=== PATIENT | female | born 1970 | race Hispanic/Latino ===

== ENCOUNTER 2017-02-10 16:20 | Observation (INO) | payer BC ==
[2017-02-10] MEDS ORDERED: Iopamidol 370 76% 50 ML VIAL FS ONE (16:34)
[2017-02-10 17:04] LABS: #Lymphocytes 1.7 thou/uL (1.20-3.40); #Monocytes 0.6 thou/uL (0.11-0.59); #Neutrophils 9.9 thou/uL (1.40-6.50); %Basophils 0.3 % (0.0-1.0); %Eosinophils 0.2 % (0.0-10.0); %Lymphocytes 13.8 % (21.0-51.0); Hematocrit 42.4 % (36.0-47.0); Mean Platelet Volume 9.8 fL (7.4-10.4); Red Blood Cell (RBC) Count 5.11 mill/uL (4.20-5.40); White Blood Cell (WBC) Count 12.3 thou/uL (4.8-10.8)
[2017-02-10 17:27] LABS: ALT (SGPT) 9 U/L (8-55); AST (SGOT) 13 U/L (5-34); Alkaline Phosphatase 128 U/L (40-150); Anion Gap 18 mmol/L (10-20); BUN (Urea Nitrogen) 31 mg/dL (7.0-18.7); Bilirubin, Total 0.6 mg/dL (0.2-1.2); CK (CPK) 65 U/L (29-168); Calc. Creatinine Clearance 0 mL/min (70-130); Calcium 8.9 mg/dL (7.8-10.44); Carbon Dioxide 23 mmol/L (22-29); Chloride 94 mmol/L (98-107); Estimated GFR-MDRD 46; Globulin 3.7 g/dL (2.4-3.5)
[2017-02-10 17:29] LABS: Troponin I Less than 0.010 ng/mL (< 0.028)
--- NOTE | 2017-02-10 17:50 | RAD ---
PORTABLE CHEST ONE VIEW: 02/10/17 at 5:15 p.m. HISTORY: Diabetes mellitus, elevated blood sugar, hyperglycemia and blood sugar in the 400s. Comparison made to exam of 10/26/15. FINDINGS: The heart size is normal. The lungs are expanded without focal areas of consolidation, pneumothorax, claudia pulmonary or pleural effusions. IMPRESSION: No acute process. POS: [facility]
[2017-02-10 17:58] LABS: Lactic Acid - Sepsis 1.6 mmol/L (0.5-2.2)
[2017-02-10 18:14] LABS: Bilirubin Negative (Negative); Blood, Urine Negative (Negative); Glucose, Urine (Dipstick) >=1000 mg/dL (Negative); Ketone, Urine 40 mg/dL (Negative); Nitrite Negative (Negative); Protein, Urine (Dipstick) 100 mg/dL (Neg-Trace); Urobilinogen 0.2 mg/dL (0.2-1.0)
[2017-02-10 18:16] LABS: Bacteria/HPF None Seen HPF (None Seen); Hyaline Casts/LPF 0-3 HYALINE CAST LPF (0-3 Hyaline); RBC/HPF 0-3 HPF (0-3); WBC/HPF None Seen HPF (0-3)
[2017-02-10] MEDS ORDERED: Acetaminophen 500 MG TAB ONE (20:01)
[2017-02-10] MEDS ORDERED: Ondansetron HCl/PF 4 MG/2 ML Vial ONE ×2 (20:10→21:15)
[2017-02-10] MEDS ORDERED: Insulin Regular 300 UNITS/3 ML VIAL ONE (20:33)
--- NOTE | 2017-02-10 21:46 | CT ---
CT ABDOMEN AND PELVIS WITHOUT CONTRAST: History: 46-year-old female with abdominal pain, hypoglycemia, nausea, vomiting. FINDINGS: Lack of IV contrast reduces the sensitivity of the exam particularly for evaluation of solid organs. Oral contrast was administered. The lung bases are clear. No gallstones are present. No free air or free fluid is noted in the abdom en or pelvis. There are a few punctate calculi in the kidneys. No calculi is seen in the ureters or urinary bladder. No hydroureteronephrosis is noted on either side. Uterus and ovaries are present. T he bowel loops are not abnormality dilated. A normal appearing appendix is present. There are vascular calcifications without evidence of aneurysmal dilatation of the abdominal aorta. Mild degenerative changes are seen in the spine. A small fat containing hernia is present. IMPRESSION: 1. Tiny bilateral nonobstructing renal calculi. 2. No evidence of appendicitis. POS: MARGARITA
--- NOTE | 2017-02-10 21:52 | CT ---
CT HEAD NONCONTRAST: Clinical history: Headache. FINDINGS: Cavum pellucidum at vergae noted. The ventricular system is appropriate in size. There is no intracr anial hemorrhage or mass effect or midline shift. Scattered paranasal sinus opacification present. C orrelate clinically. IMPRESSION: No acute intracranial hemorrhage or mass effect. POS: ANGELA
[2017-02-10 23:12] LABS: Anion Gap 12 mmol/L (-14-95); Critical Call POC Critical Value; T. Carbon Dioxide 26.4 mmol/L (1.0-85.0); pH (Venous) 7.471 (7.35-7.45); vO2 Saturation-calc 96.9 % (0.0-100.0)
[2017-02-10] MEDS ORDERED: Promethazine HCl 25 MG/ML VIAL ONE (23:13)
[2017-02-10] MEDS ORDERED: Potassium Chloride 20 MEQ TAB ONE (23:13)
[2017-02-10] MEDS ORDERED: NS 0.9% w/ 20 MEQ KCL 1,000 ML IV SCH (23:59)
[2017-02-11] MEDS ORDERED: Ondansetron HCl/PF 4 MG/2 ML Vial IVP PRN (00:52)
[2017-02-11] MEDS ORDERED: Acetaminophen 325 MG TAB PO PRN (00:52)
[2017-02-11] MEDS ORDERED: HYDROcodone/Acetaminophen 5/325 mg Tablet PO PRN (00:52)
[2017-02-11] MEDS ORDERED: HYDROcodone/Acetaminophen 10/325 mg Tablet PO PRN (00:52)
[2017-02-11] MEDS ORDERED: HumaLOG 300 UNITS/3 ML VIAL SC PRN (00:52)
[2017-02-11] MEDS ORDERED: Dextrose 5% in Water 1,000 ML IV PRN (00:52)
[2017-02-11] MEDS ORDERED: Dextrose 50% Abboject 50 ML SYRINGE SLOW IVP PRN (00:52)
[2017-02-11] MEDS ORDERED: NS 0.9% w/ 40 MEQ KCL 1,000 ML IV SCH (01:00)
[2017-02-11 01:04] VITALS: BMI 29.5
--- NOTE | 2017-02-11 02:58 | HP ---
DATE OF ADMISSION: 02/10/2017 CHIEF COMPLAINT: Increased glucose. HISTORY OF PRESENT ILLNESS: Ms. Roca is a 46-year-old Icelandic-speaking only female who presents to the emergency department tonight for increased glucose. She was seen in [facility] [place] for the same reason and was sent home and told to start her medicines. Per her daughter, she did start her Levemir and took her normal dose of 20 units today around 1:00 p.m. She has not eaten mu ch in the last 2 to 3 days. She has not eaten much on Friday, Friday, or Friday. Today, she is h aving some abdominal pain, headache, and diffuse body aches. She has had some off and on sharp ches t pains, worse with deep breathing, but no shortness of breath or cough. In the emergency department, she was seen, was noted to have increased glucose and a beta hydroxybut yrate that was positive at 1.78. They assumed that she had DKA and gave her 10 units of IV regular insulin. Her initial potassium on presentation was 3.4. At that time, her anion gap was normal, she had a bicarb of 23 and a lactic acid that was normal at 1.6. We were called for admission for DKA, however, with her normal gap, I was not convinced. ABG was requested, VBG was done that showed a normal pH of 7.47. However, due to the IV insulin, I drove her potassium down to 2.8, so I am placed her on observation for low potassium. She has no other current complaints. No other acute events. PAST MEDICAL HISTORY: 1. Diabetes mellitus, type 2, long-term use of insulin without known complications and hypoglycemia . 2. Hypertension. 3. Hyperlipidemia. 4. History of cerebrovascular disease with a past TIAs. PAST SURGICAL HISTORY: Include appendectomy in 2016, bilateral tubal ligation, remotely. HOME MEDICATIONS: 1. Lisinopril/hydrochlorothiazide 20/12.5 one p.o. b.i.d. 2. Coreg 12.5 mg p.o. b.i.d. 3. Levemir 20 units subcu every evening. 4. Plavix 75 mg daily. 5. Gemfibrozil 600 mg daily. 6. Aspirin 81 mg daily. Daughter states that she thinks when asked about oral anti-hypoglycemic agents that glipizide might be in her medicine cabinet, might be an old medicine. When asked which medicine she takes, the meli hter stated they are not sure which one she is actively taking. ALLERGIES: NKDA. FAMILY HISTORY: Significant for diabetes and hyperlipidemia. No history of clotting or bleeding di sorder, no immune dysfunction. SOCIAL HISTORY: Negative for habits x3. She is and lives at home with 3 children still lef t there out of the total of 7 that she has. REVIEW OF SYSTEMS: A 10-point review of systems was performed with the daughter translating, it was negative for all other systems except stated as per HPI. PHYSICAL EXAMINATION: VITAL SIGNS: Temperature 98.0, pulse 58, blood pressure 134/75, respiratory rate 14, satting 100% o n room air. GENERAL: She is awake. She is alert. She is oriented x3. She is acutely ill-looking [place] female, appears to be in no acute distress. HEENT: Normocephalic, atraumatic. Pupils are equal, round, and reactive bilaterally. Mucous membr anes moist, had no visible lesions. No thrush. NECK: Supple without lymphadenopathy, JVD, or thyromegaly. Normal carotid upstrokes. LUNGS: Clear. No wheezes, no rales, no rhonchi, no prolonged expiratory phase. CARDIOVASCULAR: Normal S1 and S2, no S3 or S4. No murmurs. ABDOMEN: Soft, it is nontender, nondistended, no masses, no organomegaly. She has no rebound, rigi dity, or guarding. She has normoactive bowel sounds present in all 4 quadrants. EXTREMITIES: Show no cyanosis, no clubbing, no edema, 2+ peripheral pulses in her dorsalis pedis an d posterior tibials. MUSCULOSKELETAL: Shows normal range of motion, normal inspection. There is no inflammation. No pa lpable joint effusions. SKIN: Warm, moist, and well perfused without rashes or lesions. NEUROLOGIC EXAM: Her cranial nerves II through XII are grossly intact. She has no focal deficits a nd 5/5 strength in all 4 extremities. LABORATORY DATA: Initial CMP: Sodium 132, likely pseudohyponatremia, potassium is 3.4, chloride 94 , bicarbonate 23, BUN 31, creatinine 1.26, up from her normal baseline of 0.9 to 1.0. Glucose was 4 29 and normal liver functions. A repeat showed glucose down to 189 and potassium down to 2.8. CBC showed a white count of 12.3 with a slight increase in granulocytes, but no bands. Hemoglobin is 13 .8, hematocrit of 42.4, and platelets were 302,000. RADIOGRAPHIC STUDIES: Showed a brain CT that was negative for acute intracranial bleeding or abnorm ality. Chest x-ray showed no acute cardiopulmonary disease. ASSESSMENT AND PLAN: 1. Hypokalemia: Secondary to insulin administration. We will place her on normal saline plus 20 o f KCl at 200 mL per hour tonight. We will start her on 40 mEq of potassium every 4 hours for three doses. We will recheck her magnesium, basic metabolic profile, and phosphorus first thing in the mo rning and replace electrolytes. She is not in active DKA. Her pH is 7.48, almost. Her bicarbonate is normal. She has a closed anion gap. Her beta hydroxybutyrate elevation is likely secondary to three days with the fasting and some metabolism due to not using her insulin. We will continue to w atch her labs very closely. 2. Hypertension, on lisinopril/hydrochlorothiazide, Coreg, and we will continue these. 3. No history of transient ischemic attack, on Plavix, we will continue. 4. Hyperlipidemia, gemfibrozil will continue. 5. Diabetes mellitus, type 2, uncontrolled, with history of long-term insulin. She is on Levemir 2 0 daily, which we will continue and we will add in a sliding scale of moderate dose. We will place her on observation and expect to be able to go home tomorrow. We will use Lovenox for deep venous thrombosis prophylaxis and Pepcid for gastrointestinal prophylaxis.
[2017-02-11 04:07] VITALS: TEMP 97.5
[2017-02-11 05:48] LABS: #Eosinphils 0.1 thou/uL (0.0-0.7); #Lymphocytes 2.8 thou/uL (1.20-3.40); #Monocytes 0.5 thou/uL (0.11-0.59); #Neutrophils 6.5 thou/uL (1.40-6.50); %Basophils 0.3 % (0.0-1.0); %Eosinophils 0.5 % (0.0-10.0); %Lymphocytes 28.2 % (21.0-51.0); %Monocytes 5.1 % (0.0-10.0); Hematocrit 35.9 % (36.0-47.0); Mean Platelet Volume 9.4 fL (7.4-10.4); Red Blood Cell (RBC) Count 4.26 mill/uL (4.20-5.40); White Blood Cell (WBC) Count 9.8 thou/uL (4.8-10.8)
[2017-02-11 06:07] LABS: Anion Gap 11 mmol/L (10-20); BUN (Urea Nitrogen) 25 mg/dL (7.0-18.7); Calc. Creatinine Clearance 86 mL/min (70-130); Calcium 7.9 mg/dL (7.8-10.44); Carbon Dioxide 25 mmol/L (22-29); Chloride 105 mmol/L (98-107); Estimated GFR-MDRD 64; Phosphorus 2.7 mg/dL (2.3-4.7)
[2017-02-11 08:29] VITALS: BP 125/72
[2017-02-11] MEDS ORDERED: Enoxaparin Sodium 40 MG/0.4 ML SYRINGE SC SCH (09:00)
[2017-02-11] MEDS ORDERED: FLU VACC QS2017-18 36 mo. & older 0.5 ML SYRINGE IM ONE (09:00)
[2017-02-11] MEDS ORDERED: Famotidine/PF 20 mg/2ml Vial SLOW IVP SCH (09:00)
--- NOTE | 2017-02-11 09:47 | PDOC.PN ---
- Subjective Encounter Start Date: 02/11/17 Encounter Start Time: 09:45 Ms. Roca is feeling a bit swollen, but otherwise ok. - Objective Resuscitation Status: Resuscitation Status FULL:Full Resuscitation MAR Reviewed: Yes Vital Signs & Weight: Vital Signs (12 hours) Temp Pulse Resp BP BP Pulse Ox 02/11/17 07:40 97.5 F L 54 L 16 125/72 97 02/11/17 04:00 97.5 F L 58 L 14 118/65 98 02/11/17 00:30 98.0 F 60 14 167/87 H 96 Weight Weight 161 lb 8 oz I&O: 02/10/17 02/11/17 02/12/17 06:59 06:59 06:59 Intake Total 301 Balance 301 Result Diagrams: 02/11/17 05:36 02/11/17 05:36 Additional Labs: Accuchecks 02/11/17 02/11/17 02/10/17 05:37 00:39 23:59 POC Glucose 153 H 182 H 165 H Phys Exam - Physical Examination HEENT: PERRLA Respiratory: no wheezing, no rales, no rhonchi, clear to auscultation bilateral Cardiovascular: RRR, no significant murmur, no rub Gastrointestinal: soft, non-tender, positive bowel sounds Musculoskeletal: edema present + mild non-pitting edema Dx/Plan (1) DM type 2 (diabetes mellitus, type 2) Status: Chronic (2) Dyslipidemia Code(s): E78.5 - HYPERLIPIDEMIA, UNSPECIFIED Status: Chronic (3) HTN (hypertension) Code(s): I10 - ESSENTIAL (PRIMARY) HYPERTENSION Status: Chronic - Plan * DM- uncontrolled- her glucose levels are better this morning * HTN- blood pressure is stable. * Stable for discharge home
--- NOTE | 2017-02-11 10:02 | DIS ---
DATE OF ADMISSION: 02/10/2017 DATE OF DISCHARGE: 02/11/2017 PRIMARY CARE PHYSICIAN: Erick Dai M.D. DISCHARGE DISPOSITION: Home. PRIMARY DISCHARGE DIAGNOSES: 1. Diabetes mellitus type 2, uncontrolled. 2. Hypertension. 3. Hyperlipidemia. 4. Cerebral vascular disease. CODE STATUS: FULL CODE. ALLERGIES: No known drug allergies. PROCEDURES DONE DURING ADMISSION: The patient had a CT scan of the brain with results showing no ac eulalio intracranial hemorrhage or mass effect. The CT scan of abdomen and pelvis showing tiny bilatera l nonobstructing renal stones and no evidence of appendicitis. HOSPITAL COURSE: Ms. Roca is a pleasant 46-year-old female that presented to the emergency room complaining of elevated blood glucose. She was also having some abdominal pain and headaches and d iffuse body aches. She was initially thought to be in DKA. However, on further analysis, it appear s as if she has slowly had hyperglycemia with no evidence of any acidosis. Her renal function was s lightly elevated. She was placed in observation and her blood sugars were controlled. She was give n IV fluids and started back on insulin. Her blood sugars at discharge were 170 and 153. The patie nt will be discharged home on her previous medications as it appears that she had not been taking so me of her medications prior to admission. She will be discharged on the Lantus or Levemir to 20 uni ts as she had previously been taken and to continue metformin; however, we will be discontinuing gli pizide as it is probably not adding much to her glycemic control, but will likely place her at some increased risk of hypoglycemia. She has been instructed to follow up with her primary care physicia n in approximately one week.
[2017-02-11] MEDS ORDERED: Insulin Detemir 100 UNITS/ML 20 UNITS in Pre-Filled Syringe 1 EACH SC SCH (21:00)
== END 2017-02-11 13:06 | disposition home or self-care (01) ==
LOC: ERS 16:20 → 2SW 23:58
PROVIDERS: ADMIT Internal Medicine Infectious Disease; ATTEND Internal Medicine Infectious Disease
DX: E11.65 Type 2 diabetes mellitus with hyperglycemia (principal); I10 Essential (primary) hypertension; E78.5 Hyperlipidemia, unspecified; I63.9 Cerebral infarction, unspecified; Z79.4 Long term (current) use of insulin; Z79.82 Long term (current) use of aspirin; Z79.899 Other long term (current) drug therapy; Z86.73 Personal history of transient ischemic attack (TIA), and cerebral infarction without residual deficits
CPT/HCPCS: 36415; 36416; 51701; 70450; 71010; 74176; 80048; 80053; 81003; 81015; 81025; 82010; 82330; 82550; 82553; 82803; 83605; 83690; 83735; 84100; 84484; 85025; 87040; 93005; 94760; 96361; 96365; 96366; 96372; 96374; 96375; 96376; A4353; G0378; J1650; J1815; J2270; J2405; J2550; S0028

== ENCOUNTER 2019-12-23 09:45 | Outpatient (CLI) | payer BC ==
--- NOTE | 2019-12-23 10:43 | MMO ---
Bilateral MAMMO Bilat Screen [facility]. CLINICAL HISTORY: Patient is 49 years old and is seen for screening. The patient has no family history of breast cancer. The patient has no personal history of cancer. VIEWS: The views performed were: bilateral craniocaudal with tomosynthesis and bilateral mediolateral oblique with tomosynthesis. FILMS COMPARED: The present examination has been compared to a prior imaging study performed at [facility] on 08/13/2017. This study has been interpreted with the assistance of computer-aided detection. MAMMOGRAM FINDINGS: The breasts are heterogeneously dense, which could obscure a lesion on mammography. Finding 1: There are stable benign appearing calcifications seen in both breasts. Finding 2: There is a focal asymmetry measuring 7 millimeters seen in the upper-outer region of the left breast. IMPRESSION: FINDING 1: STABLE CALCIFICATIONS IN BOTH BREASTS ARE BENIGN. FINDING 2: FOCAL ASYMMETRY IN THE LEFT BREAST REQUIRES ADDITIONAL EVALUATION. ADDITIONAL PROJECTIONS (LEFT CRANIOCAUDAL SPOT COMPRESSION; LEFT MEDIOLATERAL OBLIQUE SPOT COMPRESSION; AND LEFT MEDIOLATERAL) ARE RECOMMENDED. AN ULTRASOUND EXAM IS RECOMMENDED IF NEEDED. ADDITIONAL IMAGING. THE RESULTS OF THIS EXAM WERE SENT TO THE PATIENT. ACR BI-RADS Category 0 - Incomplete: Need additional imaging evaluation. [facility] will notify the patient of the need for additional imaging services. MAMMOGRAPHY NOTE: 1. A negative mammogram report should not delay a biopsy if a dominant of clinically suspicious mass is present. 2. Approximately 10% to 15% of breast cancers are not detected by mammography. 3. Adenosis and dense breasts may obscure an underlying neoplasm. Reported by: BRADY CAMPBELL MD Electonically Signed: [id number]
== END 2019-12-23 09:46 | disposition home or self-care (01) ==
LOC: BICMAMMO 09:45
PROVIDERS: ATTEND Family Medicine
DX: Z12.31 Encounter for screening mammogram for malignant neoplasm of breast (principal); R92.1 Mammographic calcification found on diagnostic imaging of breast; N64.89 Other specified disorders of breast
CPT/HCPCS: 77063; 77067

== ENCOUNTER 2020-02-22 12:25 | Outpatient (CLI) | payer BC ==
--- NOTE | 2020-02-22 14:04 | MMO ---
Left Breast MAMMO Unilat Diag [facility]SE. CLINICAL HISTORY: Patient is 49 years old and is seen for additional evaluation requested from prior study. The patient has no family history of breast cancer. The patient has no personal history of cancer. VIEWS: The views performed were: left craniocaudal spot compression with tomosynthesis; left mediolateral oblique spot compression with tomosynthesis; and left mediolateral with tomosynthesis. FILMS COMPARED: The present examination has been compared to prior imaging studies performed at [facility] on 08/13/2017, and at [facility] on 12/23/2019 and 02/22/2020. This study has been interpreted with the assistance of computer-aided detection. MAMMOGRAM FINDINGS: The breast is heterogeneously dense, which could obscure a lesion on mammography. There is an asymmetry seen in the upper-outer region of the left breast. The mass was shown to be a cyst on ultrasound. There are no suspicious masses, suspicious calcifications, or new areas of architectural distortion. IMPRESSION: THERE IS NO MAMMOGRAPHIC EVIDENCE OF MALIGNANCY. A ROUTINE FOLLOW-UP MAMMOGRAM IN 1 YEAR IS RECOMMENDED. THE RESULTS OF THIS EXAM WERE SENT TO THE PATIENT. ACR BI-RADS Category 2 - Benign finding MAMMOGRAPHY NOTE: 1. A negative mammogram report should not delay a biopsy if a dominant of clinically suspicious mass is present. 2. Approximately 10% to 15% of breast cancers are not detected by mammography. 3. Adenosis and dense breasts may obscure an underlying neoplasm. Reported by: ANAM BASS MD Electonically Signed: [id number]
--- NOTE | 2020-02-22 15:22 | ULT ---
LEFT BREAST ULTRASOUND: 02/22/20 HISTORY: Asymmetric density seen in the upper outer left breast. COMPARISON: Mammogram study done today and 12/23/19 and 08/13/17. Real time imaging of the area of concern shows an oblong shaped small cluster of cysts measuring appr oximately 9 mm in maximum dimension. IMPRESSION: BIRADS 2: Benign Finding(s) Routine annual screening mammography (for women over age 40). POS: OFF
== END 2020-02-22 12:26 | disposition home or self-care (01) ==
LOC: BICMAMMO 12:25
PROVIDERS: ATTEND Family Medicine
DX: R92.2 Inconclusive mammogram (principal)
CPT/HCPCS: G0279

== ENCOUNTER 2021-10-31 10:06 | Outpatient (CLI) | payer OTHER | END 2021-10-31 10:07 | disposition home or self-care (01) | LOC: BICMAMMO 10:06 | PROVIDERS: ATTEND Family Medicine | DX: Z12.31 Encounter for screening mammogram for malignant neoplasm of breast (principal); R07.81 Pleurodynia; R92.1 Mammographic calcification found on diagnostic imaging of breast; Z91.81 History of falling | CPT/HCPCS: 77063; 77067 ==

== ENCOUNTER 2022-01-30 14:25 | Inpatient (IN) | payer OTHER ==
[2022-01-30 15:26] LABS: #Eosinphils 0.3 thou/uL (0.0-0.7); #Lymphocytes 1.8 thou/uL (1.20-3.40); #Monocytes 0.4 thou/uL (0.11-0.59); #Neutrophils 6.8 thou/uL (1.40-6.50); %Basophils 0.3 % (0.0-1.0); %Eosinophils 2.9 % (0.0-10.0); %Lymphocytes 19.8 % (21.0-51.0); %Neutrophils 72.9 % (42.0-75.0); Mean Corpuscular HGB CONC 33.8 g/dL (32.0-36.0); Mean Corpuscular Hemoglobin 29.9 pg (27.0-31.0); Mean Corpuscular Volume 88.6 fL (78.0-98.0); Mean Platelet Volume 8.4 fL (7.4-10.4); Platelet Count 297 thou/uL (130-400); RBC Distribution Width 12.1 % (11.5-14.5); Red Blood Cell (RBC) Count 3.69 mill/uL (4.20-5.40); White Blood Cell (WBC) Count 9.3 thou/uL (4.8-10.8)
[2022-01-30] MEDS ORDERED: Acetaminophen 500 MG TAB ONE (15:36)
[2022-01-30] MEDS ORDERED: Metoclopramide HCl 10 MG/2 ML VIAL ONE (15:36)
[2022-01-30] MEDS ORDERED: diphenhydrAMINE 50 MG/ML VIAL ONE (15:36)
[2022-01-30] MEDS ORDERED: hydrALAZINE 20 MG/ML VIAL ONE (15:36)
[2022-01-30 15:48] LABS: ALT (SGPT) 9 U/L (8-55); AST (SGOT) 11 U/L (5-34); Albumin 3.1 g/dL (3.5-5.0); Alkaline Phosphatase 131 U/L (40-110); Anion Gap 11 mmol/L (10-20); BUN (Urea Nitrogen) 40 mg/dL (9.8-20.1); Bilirubin, Total 0.4 mg/dL (0.2-1.2); Calc. Creatinine Clearance 0 mL/min (70-130); Carbon Dioxide 23 mmol/L (22-29); Chloride 108 mmol/L (98-107); Estimated GFR 17; Globulin 3.3 g/dL (2.4-3.5); Glucose 101 mg/dL (70-105); Potassium 4.2 mmol/L (3.5-5.1); Protein, Total 6.4 g/dL (6.0-8.3); Sodium 138 mmol/L (136-145)
[2022-01-30 16:07] LABS: Bacteria/HPF None Seen HPF (None Seen); Bilirubin Negative (Negative); Blood, Urine Trace (Negative); Clarity Clear (Clear); Glucose, Urine (Dipstick) 150 mg/dL (Negative); Ketone, Urine Negative (Negative); Leukocyte 75 Leu/uL (Negative); Nitrite Negative (Negative); Protein, Urine (Dipstick) 300 mg/dL (Neg-Trace); RBC/HPF 0-3 HPF (0-3); Specific Gravity, Urine 1.015 (1.002-1.036); Urobilinogen Normal mg/dL (Less than 2); pH, Urine 6.5 (5.0-9.0)
[2022-01-30 16:11] LABS: CKMB 0.9 ng/mL (0-6.6)
[2022-01-30] MEDS ORDERED: Ondansetron PF 4 MG/2 ML Vial ONE (17:19)
[2022-01-30] MEDS ORDERED: Acetaminophen 325 MG TAB PO PRN (17:34)
[2022-01-30] MEDS ORDERED: Metoclopramide HCl 10 MG TAB PO PRN (17:41)
[2022-01-30] MEDS ORDERED: Sodium Chloride 0.9% 1,000 ML IV SCH (17:45)
[2022-01-30 20:13] LABS: Troponin I 0.012 ng/mL (< 0.028)
[2022-01-30 20:41] VITALS: BMI 31.0
[2022-01-30] MEDS ORDERED: Dextrose 50% Abboject 50 ML SYRINGE SLOW IVP PRN (21:11)
[2022-01-30] MEDS ORDERED: HumaLOG 300 UNITS/3 ML VIAL SC PRN (21:11)
[2022-01-30] MEDS ORDERED: Dextrose 5% in Water 1,000 ML IV PRN (21:11)
[2022-01-30] MEDS ORDERED: Methocarbamol 500 MG TAB PO PRN (21:13)
[2022-01-30] MEDS: hydrALAZINE 20 MG/ML VIAL SLOW IVP PRN (21:29)
[2022-01-30 22:08] LABS: Troponin I 0.013 ng/mL (< 0.028)
[2022-01-31 05:07] LABS: #Eosinphils 0.2 thou/uL (0.0-0.7); #Lymphocytes 1.5 thou/uL (1.20-3.40); #Monocytes 0.4 thou/uL (0.11-0.59); #Neutrophils 6.5 thou/uL (1.40-6.50); %Basophils 0.1 % (0.0-1.0); %Eosinophils 2.1 % (0.0-10.0); %Lymphocytes 17.9 % (21.0-51.0); %Monocytes 4.3 % (0.0-10.0); %Neutrophils 75.5 % (42.0-75.0); Hemoglobin 10.8 g/dL (12.0-16.0); Mean Corpuscular HGB CONC 33.7 g/dL (32.0-36.0); Mean Corpuscular Volume 89.1 fL (78.0-98.0); Mean Platelet Volume 8.5 fL (7.4-10.4); Platelet Count 278 thou/uL (130-400); RBC Distribution Width 12.3 % (11.5-14.5); Red Blood Cell (RBC) Count 3.61 mill/uL (4.20-5.40); White Blood Cell (WBC) Count 8.5 thou/uL (4.8-10.8)
[2022-01-31 05:28] LABS: Anion Gap 13 mmol/L (10-20); BUN (Urea Nitrogen) 38 mg/dL (9.8-20.1); Calc. Creatinine Clearance 26 mL/min (70-130); Calcium 8.7 mg/dL (7.8-10.44); Carbon Dioxide 18 mmol/L (22-29); Chloride 111 mmol/L (98-107); Estimated GFR 18; Glucose 161 mg/dL (70-105); Potassium 3.9 mmol/L (3.5-5.1); Sodium 138 mmol/L (136-145)
[2022-01-31] MEDS ORDERED: Carvedilol 6.25 MG TAB PO SCH (08:00)
[2022-01-31] MEDS ORDERED: FLU VACC QS2022-23(6MOS UP)/PF 60 MCG/0.5 ML SYRINGE IM ONE (09:00)
[2022-01-31] MEDS ORDERED: Non-Formulary Item 1 EACH (Lisinopril [Lisinopril] 40 MG Tablet) PO SCH (09:00)
[2022-01-31] MEDS ORDERED: Amlodipine 5 MG TAB PO SCH (09:00)
[2022-01-31] MEDS ORDERED: Sodium Chloride 0.9% 1,000 ML IV SCH (09:30)
[2022-01-31] MEDS: Gemfibrozil 600 MG TAB PO SCH ×2 (09:46→15:47)
[2022-01-31] MEDS: Cholecalciferol 1,000 UNITS (25 MCG) TAB PO SCH (09:46)
[2022-01-31] MEDS: hydrALAZINE 20 MG/ML VIAL SLOW IVP PRN (09:47)
[2022-01-31] MEDS: glipiZIDE 5 MG TAB PO SCH (09:47)
[2022-01-31] MEDS: Insulin Glargine 30 UNITS/0.3 ML VIAL SC SCH ×2 (09:47→23:02)
[2022-01-31] MEDS: HumaLOG 300 UNITS/3 ML VIAL SC PRN (12:38)
[2022-01-31] MEDS ORDERED: NIFEdipine XL 60 MG TAB PO SCH (14:30)
[2022-01-31 15:31] LABS: Creatinine, Urine 61.18 mg/dL (47-110)
[2022-01-31] MEDS: Carvedilol 25 MG TAB PO SCH (16:04)
[2022-01-31] MEDS ORDERED: Cholecalciferol 1,000 UNITS (25 MCG) TAB PO SCH (21:00)
[2022-01-31] MEDS: Aspirin 81 mg Enteric Coated Tablet PO SCH (21:07)
[2022-02-01] MEDS: Sodium Chloride 0.9% 1,000 ML IV SCH (00:50)
[2022-02-01 04:29] LABS: #Eosinphils 0.1 thou/uL (0.0-0.7); #Lymphocytes 1.7 thou/uL (1.20-3.40); #Monocytes 0.4 thou/uL (0.11-0.59); #Neutrophils 5.9 thou/uL (1.40-6.50); %Eosinophils 1.8 % (0.0-10.0); %Lymphocytes 21.2 % (21.0-51.0); %Monocytes 4.7 % (0.0-10.0); %Neutrophils 72.3 % (42.0-75.0); Hemoglobin 10.1 g/dL (12.0-16.0); Mean Corpuscular HGB CONC 33.3 g/dL (32.0-36.0); Mean Corpuscular Hemoglobin 30.1 pg (27.0-31.0); Mean Corpuscular Volume 90.3 fL (78.0-98.0); Mean Platelet Volume 8.2 fL (7.4-10.4); Platelet Count 288 thou/uL (130-400); RBC Distribution Width 12.1 % (11.5-14.5); Red Blood Cell (RBC) Count 3.36 mill/uL (4.20-5.40); White Blood Cell (WBC) Count 8.1 thou/uL (4.8-10.8)
[2022-02-01 05:06] LABS: Anion Gap 11 mmol/L (10-20); BUN (Urea Nitrogen) 42 mg/dL (9.8-20.1); Calc. Creatinine Clearance 23 mL/min (70-130); Calcium 8.5 mg/dL (7.8-10.44); Carbon Dioxide 19 mmol/L (22-29); Chloride 110 mmol/L (98-107); Estimated GFR 15; Glucose 82 mg/dL (70-105); Potassium 3.7 mmol/L (3.5-5.1); Sodium 136 mmol/L (136-145)
[2022-02-01] MEDS: Insulin Glargine 30 UNITS/0.3 ML VIAL SC SCH ×2 (09:05→19:44)
[2022-02-01] MEDS: NIFEdipine XL 60 MG TAB PO SCH (09:06)
[2022-02-01] MEDS: Cholecalciferol 1,000 UNITS (25 MCG) TAB PO SCH (09:07)
[2022-02-01] MEDS: glipiZIDE 5 MG TAB PO SCH (09:07)
[2022-02-01] MEDS: Gemfibrozil 600 MG TAB PO SCH ×2 (09:07→18:02)
[2022-02-01] MEDS: Carvedilol 25 MG TAB PO SCH ×2 (09:07→18:02)
[2022-02-01] MEDS: Aspirin 81 mg Enteric Coated Tablet PO SCH (19:45)
[2022-02-02 07:16] LABS: #Eosinphils 0.2 thou/uL (0.0-0.7); #Lymphocytes 1.4 thou/uL (1.20-3.40); #Monocytes 0.3 thou/uL (0.11-0.59); #Neutrophils 5.1 thou/uL (1.40-6.50); %Basophils 0.4 % (0.0-1.0); %Eosinophils 2.3 % (0.0-10.0); %Lymphocytes 20.1 % (21.0-51.0); %Monocytes 4.2 % (0.0-10.0); Hemoglobin 9.7 g/dL (12.0-16.0); Mean Corpuscular HGB CONC 33.1 g/dL (32.0-36.0); Mean Corpuscular Hemoglobin 29.8 pg (27.0-31.0); Mean Platelet Volume 8.5 fL (7.4-10.4); Platelet Count 273 thou/uL (130-400); RBC Distribution Width 12.1 % (11.5-14.5); Red Blood Cell (RBC) Count 3.25 mill/uL (4.20-5.40)
[2022-02-02 07:29] LABS: Anion Gap 11 mmol/L (10-20); BUN (Urea Nitrogen) 41 mg/dL (9.8-20.1); Calc. Creatinine Clearance 22 mL/min (70-130); Calcium 8.3 mg/dL (7.8-10.44); Carbon Dioxide 19 mmol/L (22-29); Chloride 110 mmol/L (98-107); Estimated GFR 15; Glucose 170 mg/dL (70-105); Potassium 4.3 mmol/L (3.5-5.1); Sodium 136 mmol/L (136-145)
[2022-02-02] MEDS: Carvedilol 25 MG TAB PO SCH ×2 (08:26→17:05)
[2022-02-02] MEDS: glipiZIDE 5 MG TAB PO SCH (08:26)
[2022-02-02] MEDS: Gemfibrozil 600 MG TAB PO SCH ×2 (08:26→16:02)
[2022-02-02] MEDS: Cholecalciferol 1,000 UNITS (25 MCG) TAB PO SCH (08:26)
[2022-02-02] MEDS: Insulin Glargine 30 UNITS/0.3 ML VIAL SC SCH ×2 (08:26→21:10)
[2022-02-02] MEDS: NIFEdipine XL 60 MG TAB PO SCH (08:30)
[2022-02-02] MEDS: HumaLOG 300 UNITS/3 ML VIAL SC PRN (17:05)
[2022-02-03] MEDS: Cholecalciferol 1,000 UNITS (25 MCG) TAB PO SCH (08:01)
[2022-02-03] MEDS: NIFEdipine XL 60 MG TAB PO SCH (08:02)
[2022-02-03] MEDS: Gemfibrozil 600 MG TAB PO SCH ×2 (08:02→16:10)
[2022-02-03] MEDS: Carvedilol 25 MG TAB PO SCH ×2 (08:02→16:10)
[2022-02-03] MEDS: Insulin Glargine 30 UNITS/0.3 ML VIAL SC SCH ×2 (08:02→21:04)
[2022-02-03 08:56] LABS: #Eosinphils 0.2 thou/uL (0.0-0.7); #Monocytes 0.5 thou/uL (0.11-0.59); #Neutrophils 6.9 thou/uL (1.40-6.50); %Basophils 0.2 % (0.0-1.0); %Eosinophils 2.1 % (0.0-10.0); %Lymphocytes 20.8 % (21.0-51.0); %Monocytes 4.8 % (0.0-10.0); %Neutrophils 72.1 % (42.0-75.0); Hemoglobin 10.9 g/dL (12.0-16.0); Mean Corpuscular HGB CONC 32.8 g/dL (32.0-36.0); Mean Corpuscular Hemoglobin 29.6 pg (27.0-31.0); Mean Corpuscular Volume 90.2 fL (78.0-98.0); Mean Platelet Volume 8.4 fL (7.4-10.4); Platelet Count 323 thou/uL (130-400); RBC Distribution Width 12.1 % (11.5-14.5); Red Blood Cell (RBC) Count 3.69 mill/uL (4.20-5.40); White Blood Cell (WBC) Count 9.5 thou/uL (4.8-10.8)
[2022-02-03 09:05] LABS: Anion Gap 11 mmol/L (10-20); BUN (Urea Nitrogen) 47 mg/dL (9.8-20.1); Calc. Creatinine Clearance 21 mL/min (70-130); Calcium 8.8 mg/dL (7.8-10.44); Carbon Dioxide 20 mmol/L (22-29); Chloride 109 mmol/L (98-107); Estimated GFR 14; Glucose 60 mg/dL (70-105); Potassium 4.4 mmol/L (3.5-5.1); Sodium 136 mmol/L (136-145)
[2022-02-04 06:18] LABS: #Eosinphils 0.2 thou/uL (0.0-0.7); #Lymphocytes 1.7 thou/uL (1.20-3.40); #Monocytes 0.4 thou/uL (0.11-0.59); #Neutrophils 5.2 thou/uL (1.40-6.50); %Basophils 0.6 % (0.0-1.0); %Eosinophils 2.6 % (0.0-10.0); %Lymphocytes 22.6 % (21.0-51.0); %Monocytes 5.1 % (0.0-10.0); %Neutrophils 69.1 % (42.0-75.0); Hemoglobin 9.9 g/dL (12.0-16.0); Mean Corpuscular HGB CONC 32.5 g/dL (32.0-36.0); Mean Corpuscular Hemoglobin 29.8 pg (27.0-31.0); Mean Corpuscular Volume 91.6 fL (78.0-98.0); Mean Platelet Volume 7.7 fL (7.4-10.4); Platelet Count 274 thou/uL (130-400); RBC Distribution Width 12.1 % (11.5-14.5); Red Blood Cell (RBC) Count 3.34 mill/uL (4.20-5.40); White Blood Cell (WBC) Count 7.5 thou/uL (4.8-10.8)
[2022-02-04 06:53] LABS: Anion Gap 12 mmol/L (10-20); BUN (Urea Nitrogen) 47 mg/dL (9.8-20.1); Calc. Creatinine Clearance 21 mL/min (70-130); Calcium 8.4 mg/dL (7.8-10.44); Carbon Dioxide 18 mmol/L (22-29); Chloride 110 mmol/L (98-107); Estimated GFR 14; Glucose 79 mg/dL (70-105); Potassium 4.3 mmol/L (3.5-5.1); Sodium 136 mmol/L (136-145)
[2022-02-04] MEDS: Insulin Glargine 30 UNITS/0.3 ML VIAL SC SCH ×2 (08:16→21:00)
[2022-02-04] MEDS: Gemfibrozil 600 MG TAB PO SCH ×2 (08:17→16:13)
[2022-02-04] MEDS: Carvedilol 25 MG TAB PO SCH ×2 (08:17→16:14)
[2022-02-04] MEDS: Cholecalciferol 1,000 UNITS (25 MCG) TAB PO SCH (08:17)
[2022-02-04] MEDS: NIFEdipine XL 60 MG TAB PO SCH (08:17)
[2022-02-04] MEDS ORDERED: Calcium Carbonate 500 MG ChewTAB PO PRN (14:18)
[2022-02-04 17:13] LABS: A/G Ratio 0.8 (0.7-1.7); Albumin 2.5 g/dL (2.9-4.4); Alpha 1 0.3 g/dL (0.0-0.4); Alpha 2 0.9 g/dL (0.4-1.0); Beta 1.2 g/dL (0.7-1.3); Gamma 0.7 g/dL (0.4-1.8); Globulin, Total 3.1 g/dL (2.2-3.9); M-Spike Not Observed g/dL (Not Observed)
[2022-02-04 18:13] LABS: Albumin-Ur 61.4 % (.); Alpha 1 - Ur 6.9 % (.); Alpha 2 - Ur 11.3 % (.); Beta-Ur 12.5 % (.); Gamma-Ur 7.9 % (.); M-Spike,% Not Observed % (Not Observed); Protein, Urine 883.7 mg/dL (Not Estab.)
[2022-02-05] MEDS: Insulin Glargine 30 UNITS/0.3 ML VIAL SC SCH ×2 (08:37→20:27)
[2022-02-05] MEDS: Cholecalciferol 1,000 UNITS (25 MCG) TAB PO SCH (08:38)
[2022-02-05] MEDS: Carvedilol 25 MG TAB PO SCH ×2 (08:38→16:39)
[2022-02-05] MEDS: NIFEdipine XL 60 MG TAB PO SCH (08:38)
[2022-02-05] MEDS: Gemfibrozil 600 MG TAB PO SCH ×2 (08:38→16:39)
[2022-02-06 06:57] LABS: Anion Gap 14 mmol/L (10-20); BUN (Urea Nitrogen) 51 mg/dL (9.8-20.1); Calc. Creatinine Clearance 22 mL/min (70-130); Calcium 8.5 mg/dL (7.8-10.44); Carbon Dioxide 20 mmol/L (22-29); Chloride 108 mmol/L (98-107); Estimated GFR 14; Glucose 154 mg/dL (70-105); Potassium 4.7 mmol/L (3.5-5.1); Sodium 137 mmol/L (136-145)
[2022-02-06] MEDS: NIFEdipine XL 60 MG TAB PO SCH (08:08)
[2022-02-06] MEDS: Gemfibrozil 600 MG TAB PO SCH ×2 (08:08→16:36)
[2022-02-06] MEDS: Cholecalciferol 1,000 UNITS (25 MCG) TAB PO SCH (08:08)
[2022-02-06] MEDS: Carvedilol 25 MG TAB PO SCH ×2 (08:08→16:40)
[2022-02-06] MEDS: Insulin Glargine 30 UNITS/0.3 ML VIAL SC SCH ×3 (08:09→20:52)
[2022-02-06] MEDS ORDERED: Semaglutide (Ozempic) 0.25 MG/0.2 ML Pen.Injctr FS SCH (09:00)
[2022-02-06 11:53] LABS: Prothrombin Time 13.7 sec (12.0-14.7)
[2022-02-06 11:54] LABS: PTT 31.8 sec (22.9-36.1)
[2022-02-06] MEDS ORDERED: Sodium Bicarbonate 2.5 MEQ/5 ML VIAL ONE (13:10)
[2022-02-06] MEDS ORDERED: Fentanyl 100 MCG/2 ML VIAL ONE (13:10)
[2022-02-06] MEDS ORDERED: Midazolam HCl 2 mg/2 ml Vial ONE (13:10)
[2022-02-07 06:43] LABS: #Eosinphils 0.2 thou/uL (0.0-0.7); #Lymphocytes 1.4 thou/uL (1.20-3.40); #Monocytes 0.3 thou/uL (0.11-0.59); #Neutrophils 4.9 thou/uL (1.40-6.50); %Basophils 0.3 % (0.0-1.0); %Eosinophils 2.6 % (0.0-10.0); %Lymphocytes 20.7 % (21.0-51.0); %Neutrophils 71.5 % (42.0-75.0); Hemoglobin 9.9 g/dL (12.0-16.0); Mean Corpuscular HGB CONC 33.3 g/dL (32.0-36.0); Mean Corpuscular Hemoglobin 29.9 pg (27.0-31.0); Mean Corpuscular Volume 89.9 fL (78.0-98.0); Platelet Count 277 thou/uL (130-400); RBC Distribution Width 11.8 % (11.5-14.5); Red Blood Cell (RBC) Count 3.31 mill/uL (4.20-5.40); White Blood Cell (WBC) Count 6.9 thou/uL (4.8-10.8)
[2022-02-07 07:19] LABS: Anion Gap 12 mmol/L (10-20); BUN (Urea Nitrogen) 50 mg/dL (9.8-20.1); Calc. Creatinine Clearance 23 mL/min (70-130); Calcium 8.7 mg/dL (7.8-10.44); Carbon Dioxide 21 mmol/L (22-29); Chloride 108 mmol/L (98-107); Estimated GFR 15; Glucose 111 mg/dL (70-105); Potassium 4.9 mmol/L (3.5-5.1); Sodium 136 mmol/L (136-145)
[2022-02-07] MEDS: Insulin Glargine 30 UNITS/0.3 ML VIAL SC SCH (08:00)
[2022-02-07] MEDS: Carvedilol 25 MG TAB PO SCH (08:00)
[2022-02-07] MEDS: Gemfibrozil 600 MG TAB PO SCH (08:00)
[2022-02-07] MEDS: Cholecalciferol 1,000 UNITS (25 MCG) TAB PO SCH (08:00)
[2022-02-07] MEDS: NIFEdipine XL 60 MG TAB PO SCH (08:00)
[2022-02-07 08:38] VITALS: BP 150/82; TEMP 97.6
== END 2022-02-07 12:39 | disposition home or self-care (01) | DRG 683 ==
LOC: ERS 14:25 → SUATTDRO 14:25 → 2SW 18:58 → OBSVTOIN 02-01 14:27 → T4-B 02-01 18:53
PROVIDERS: ADMIT Family Medicine; ATTEND Internal Medicine
PROC: 0TB13ZX Excision of Left Kidney, Percutaneous Approach, Diagnostic (ICD-10-PCS; principal; 2022-02-06)
DX: N17.9 Acute kidney failure, unspecified (principal); I16.1 Hypertensive emergency; Z20.822 Contact with and (suspected) exposure to COVID-19; D64.9 Anemia, unspecified; R79.89 Other specified abnormal findings of blood chemistry; I12.9 Hypertensive chronic kidney disease with stage 1 through stage 4 chronic kidney disease, or unspecified chronic kidney disease; E11.22 Type 2 diabetes mellitus with diabetic chronic kidney disease; I16.0 Hypertensive urgency; F32.A Depression, unspecified; D63.1 Anemia in chronic kidney disease; E78.00 Pure hypercholesterolemia, unspecified; E66.9 Obesity, unspecified; N18.4 Chronic kidney disease, stage 4 (severe); Z86.73 Personal history of transient ischemic attack (TIA), and cerebral infarction without residual deficits; Z79.899 Other long term (current) drug therapy; Z79.82 Long term (current) use of aspirin; Z79.4 Long term (current) use of insulin; Z90.49 Acquired absence of other specified parts of digestive tract; Z98.51 Tubal ligation status; Z68.31 Body mass index [BMI] 31.0-31.9, adult
CPT/HCPCS: 36415; 36416; 50200; 70450; 71045; 76700; 76770; 77012; 80048; 80053; 81003; 81015; 82553; 82570; 84155; 84156; 84165; 84166; 84484; 85025; 85610; 85730; 87811; 88329; 93005; 93306; 94760; 96365; 96375; 96376; C1713; G0378; J0360; J1200; J1815; J2250; J2405; J2765; J3010; J7050; U0003; U0005